=== PATIENT | female | born 1980 | race Caucasian/White ===

== ENCOUNTER 2017-07-02 20:21 | Emergency (ER) | payer OTHER ==
[~2017-07-02] VITALS: Ht 157.5 cm; Wt 80.3 kg
[~2017-07-02 20:21] MED LIST: CELEXA 10 MG TA10 M1 PO; FLOMAX PO; NORCO 5-325 TA1 EACH PO; TRI-SPRINTEC1 EACH PO; ZOFRAN ODT4 MG PO
[2017-07-02 21:30] VITALS: BP 131/84
== END 2017-07-02 22:05 | disposition home or self-care (01) ==
LOC: ER 20:21
DX: S92.421A Displaced fracture of distal phalanx of right great toe, initial encounter for closed fracture (principal); Z87.442 Personal history of urinary calculi; Z90.49 Acquired absence of other specified parts of digestive tract; Z98.890 Other specified postprocedural states; W10.9XXA Fall (on) (from) unspecified stairs and steps, initial encounter; Y93.89 Activity, other specified; Y92.89 Other specified places as the place of occurrence of the external cause; Y99.8 Other external cause status